=== PATIENT | male | born 1960 | race Caucasian/White ===

== ENCOUNTER 2020-11-27 14:19 | Emergency (ER) | payer OTHER, SELFPAY ==
--- NOTE | ~2020-11-27 | XR_ITS ---
EXAMINATION: XR chest 2V DATE: 11/27/2020 16:57 INDICATION: Dyspnea. Cough. COVID-19 pneumonia. TECHNIQUE: Frontal and lateral views of the chest were obtained. COMPARISON: None. FINDINGS: There are patchy airspace opacities in all right lung zones and in left mid and lower lung zones. No pleural effusion or pneumothorax. The heart size is normal. IMPRESSION: 1. Diffuse lung disease, consistent with COVID-19 pneumonia. Reviewed, dictated and finalized at location A.
[2020-11-27 15:24] VITALS: BP 134/80; PULSE 93; RESP 20; TEMP 39.1; O2SAT 94
--- NOTE | 2020-11-27 15:36 | ED.WEAKNESS ---
HPI - Weakness General Chief complaint: Weakness Stated complaint: covid + Time Seen by Provider: 11/27/20 15:36 Source: patient Mode of arrival: ambulatory Limitations: no limitations History of Present Illness HPI Narrative: 60-year-old man who is previously well comes in today complaining of cough, weakness, fever, and shortness of breath. He was diagnosed on November 18 after having had symptoms since the . He denies having chest pain. He has had intermittent vomiting and diarrhea. His cough is productive of yellow sputum. MD Complaint: generalized weakness Onset (ago): day(s) () Duration: constant and progressively worsening Location: generalized Migration: none Severity: moderate Relieving factors: rest Exacerbating factors: exertion Context: recent illness Associated symptoms: fever/chills, headaches, loss of appetite, nausea/vomiting, myalgias and shortness of breath Related Data Home Medications Medication Instructions Recorded Confirmed multivitamin with minerals [All 1 tablet PO DAILY 11/27/20 11/27/20 Purpose Multivitamin-Min] Allergies Allergy/AdvReac Type Severity Reaction Status Date / Time No Known Allergies Allergy Verified 11/27/20 15:24 Review of Systems Review of Systems: All systems reviewed & are unremarkable except as noted in HPI and below Constitutional: Constitutional: Reports chills, Reports fatigue, Reports fever(s) and Reports weakness Eyes: Eyes: Denies change in vision and Denies photophobia ENT: Reports nasal congestion and Denies sore throat Cardiovascular: Cardiovascular: Denies chest pain and Denies radiating jaw, neck or arm pain Respiratory: Respiratory: Reports cough, Reports dyspnea and Denies wheezing Gastrointestinal: Gastrointestinal: Denies abdominal pain, Reports diarrhea, Reports nausea and Reports vomiting Musculoskeletal: Musculoskeletal: Denies back pain, Reports myalgias, Denies arthralgias and Denies joint swelling Integumentary/Breasts: Skin/Breast: Denies pruritus, Denies erythema and Denies rash Neurologic: Denies vertigo, Denies dizziness, Denies syncope, Denies focal weakness, Denies numbness and Reports weakness Hematologic/Lymphatic: Hematologic/Lymphatic: Denies easy bleeding and Denies easy bruising Allergic/Immunologic: Allergic/Immunologic: Denies lip swelling and Denies throat swelling PMF Social History Social History (Updated 11/27/20 @ 17:57 by Orlando Escalante MD) Smoking status: Never smoker Alcohol intake: current Alcohol use details: Occasional Substance use: never Living arrangements: with family Exam Const: General: alert and ill appearing acutely (Mildly) Orientation/consciousness: patient oriented x3 Limitations: no limitations Other: Mild acute distress. HENMT: Head: normal to inspection Ears: external ears normal, TM's normal bilaterally and EAC's normal General nose exam: Normal nares present Face and sinus: normal facial exam Mouth: Yes dry mucous membranes Throat: posterior oropharynx normal Eyes: Conjunctivae: conjunctivae normal Pupils: Equal, round and reactive pupils present EOM: EOMs intact bilaterally Resp: Effort & Inspection: normal respiratory effort and not labored Auscultation: clear to auscultation bilaterally, no rales, no rhonchi and no wheezes Cardio: Rate: regular rate Rhythm: regular rhythm Heart sounds: no murmurs GI: GI Palp: Yes Soft to palpation and No Tenderness to palpation present (GI) Skin: General skin exam: normal color, no jaundice and no pallor Rashes: no rashes Neuro: General: patient oriented x3, moves all extremities, no focal motor deficits and CN's II-XI intact bilaterally Speech: normal speech Gait exam (Neuro): Normal gait present Extrem: General: normal to inspection and no clubbing, cyanosis or edema Psych: Appearance: grossly normal and well kempt Mental Status: mental status grossly normal Affect: normal affect Attitude: coope
--- NOTE | 2020-11-27 15:44 | ECG_ITS ---
Measurements Intervals [place] Rate: 80 P: 56 [place]: 181 QRS: 24 QRSD: 85 T: 12 QT: 359 QTc: 416 Interpretive Statements SINUS RHYTHM INCOMPLETE RIGHT BUNDLE BRANCH BLOCK DELAYED PRECORDIAL R/S TRANSITION BASELINE ARTIFACT- II, III, AVL, AVF BORDERLINE ECG Electronically Signed On 11-27-2020 19:13:48 CDT by Tung Henry D.O.
[2020-11-27] MEDS: SODIUM CHLORIDE 0.9% IV 1,000 ML 999 ML IV CONT ×2 (16:24→18:27)
[2020-11-27 16:25] VITALS: BP 124/78; PULSE 75
[2020-11-27 16:30] VITALS: BP 114/77; PULSE 97
[2020-11-27 16:46] LABS: Basophils Absolute Auto 0.03 K/mm3 (0.00-0.10); Basophils Percent Auto 0.4 % (0.0-1.0); Hematocrit 44.6 % (40.0-54.0); Hemoglobin 15.4 g/dL (14.0-18.0); Immature Granulocyte Percent A 1.2 % (0.0-0.0); Lymphocytes Percent Auto 7.3 % (18.0-42.0); Mean Corpuscular HGB Conc 34.5 g/dL (32.0-36.0); Mean Corpuscular Hemoglobin 30.2 pg (27.0-31.0); Mean Corpuscular Volume 87.5 fL (78.0-102.0); Mean Platelet Volume 10.2 fl (8.7-11.0); Monocytes Percent Auto 6.1 % (2.0-11.0); Platelet Count Result 263 K/mm3 (150-420); Red Cell Distribution Width 12.5 % (11.6-14.4); White Blood Count 8.2 K/mm3 (4.8-10.8)
[2020-11-27 17:04] LABS: Alanine Aminotransferase 150 U/L (16-63); Albumin Level 2.7 g/dL (3.4-5.0); Alkaline Phosphatase 130 U/L (46-116); Anion Gap 10 mmol/L (8-16); Aspartate Amino Transferase 132 U/L (15-37); Bilirubin,Total 0.9 mg/dL (0.00-1.00); Blood Urea Nitrogen 16 mg/dL (7-18); Carbon Dioxide 29 mmol/L (21-32); Chloride 97 mmol/L (98-108); Estimated CRCL calculation 87 ml/min; Estimated Glomerular Filt Rate > 60; Glucose 120 mg/dL (70-99); Lactic Acid Reflex 1.3 mmol/L (0.4-2.0); Osmolality Calculated 284 mOsm/kg (285-295); Potassium 4.1 mmol/L (3.5-5.1); Sodium 136 mmol/L (136-145); Total Protein 6.9 g/dL (6.4-8.2); Troponin I 11.4 ng/L (0.00-60.4)
[2020-11-27 17:06] LABS: CRP 17.8 mg/dL (0.0-0.9)
--- NOTE | 2020-11-27 17:44 | PC.NURSE ---
pt resting comfortably on stretcher, states unable to provide urine sample at this time
[2020-11-27 18:17] VITALS: BP 125/79; PULSE 84; RESP 18; O2SAT 94
--- NOTE | 2020-11-27 19:14 | PC.NURSE ---
report to josette gaytan
[2020-11-27 19:50] LABS: Appearance Urine Clear (Clear); Bilirubin Urine 2+ (Negative); Color Urine Dark Yellow (Yellow); Glucose Urine UA Negative (Negative); Ketones Urine 1+ (Negative); Leukocyte Esterase Ur Negative LEU/UL (Negative); Nitrate Urine Negative (Negative); Protein Urine 2+ (Negative); Specific Grav Ur 1.025 (1.010-1.020)
[2020-11-27 19:51] LABS: Add Urine Microscopic? YES; Blood Urine Trace (Negative)
[2020-11-27 19:54] LABS: Amorphous Sediment Urine Few; Bacteria Urine Trace /hpf; RBC Urine 0-2 /hpf (0-2); WBC Urine 0-3 /hpf (0-3)
[2020-11-27 19:55] LABS: Mucus Urine Moderate /lpf
[2020-11-27 20:23] VITALS: BP 144/97; PULSE 89; RESP 20; TEMP 38.2; O2SAT 98
== END 2020-11-27 20:24 | disposition home or self-care (01) ==
PROVIDERS: Emergency Provider Emergency Medicine
DX: U07.1 COVID-19 (principal); J12.82 Pneumonia due to coronavirus disease 2019
CPT/HCPCS: 36415; 71046; 80053; 81001; 83605; 84484; 85025; 86140; 87040; 93005; 96360; 96361; 99283; 99284; J7030

== ENCOUNTER 2020-12-04 10:06 | Outpatient (CLI) | payer OTHER, SELFPAY ==
[2020-12-04 11:29] LABS: Hemoglobin A1C 5.7 % (<5.7)
[2020-12-04 11:34] LABS: Cholesterol 198 mg/dL (0-200); HDL Direct 15 mg/dL (40-60); LDL Cholesterol Calculated 145 mg/dL (<130); Triglycerides 188 mg/dL (0-150)
== END 2020-12-04 10:07 | disposition home or self-care (01) ==
LOC: CHSLAB 10:08
PROVIDERS: PCP Family Medicine; Visit Provider Family Medicine
DX: Z00.00 Encounter for general adult medical examination without abnormal findings (principal); R73.09 Other abnormal glucose
CPT/HCPCS: 36415; 80061; 83036; 84443